=== PATIENT | male | born 1980 | race African-American/Black ===

== ENCOUNTER 2016-09-16 21:25 | Emergency (ER) | payer SELFPAY ==
[~2016-09-16] VITALS: Ht 190.5 cm; Wt 108.9 kg
[2016-09-16 21:38] VITALS: BP 156/99
== END 2016-09-16 22:04 | disposition home or self-care (01) ==
LOC: ER 21:28
DX: S13.4XXA Sprain of ligaments of cervical spine, initial encounter (principal); S39.012A Strain of muscle, fascia and tendon of lower back, initial encounter; I10 Essential (primary) hypertension; V49.50XA Passenger injured in collision with unspecified motor vehicles in traffic accident, initial encounter; Y93.89 Activity, other specified; Y92.413 State road as the place of occurrence of the external cause; Y99.8 Other external cause status
CPT/HCPCS: A4606; Z7610